=== PATIENT | male | born 1990 | race Caucasian/White ===

== ENCOUNTER 2024-06-06 07:27 | Outpatient (CLI) | payer BC, SELFPAY ==
[2024-06-06 07:57] LABS: Hemoglobin A1C 4.7 % (<5.7)
[2024-06-06 07:58] LABS: Anion Gap 5.9 mmol/L (3-11); BUN 18 mg/dL (7-18); CO2 31.1 mmol/L (21.0-32.0); CREATININE 1.1 mg/dL (0.70-1.30); Calcium 9.1 mg/dL (8.5-10.1); Calculated LDL 116 mg/dL (<100); Chloride 107 mmol/L (98-107); Cholesterol 173 mg/dL (<200); Estimated GFR 91.47 (mL/min/1.73m2); Glucose 96 mg/dL (74-106); HDL Cholesterol 45 mg/dL (40-60); Potassium 3.9 mmol/L (3.5-5.1); Sodium 144 mmol/L (136-145); Triglyceride 62 mg/dL (<150)
== END 2024-06-06 07:28 | disposition home or self-care (01) ==
LOC: LBO 07:28
PROVIDERS: Visit Provider Nurse Practitioner Family
DX: Z13.220 Encounter for screening for lipoid disorders (principal); Z13.228 Encounter for screening for other metabolic disorders; Z01.30 Encounter for examination of blood pressure without abnormal findings
CPT/HCPCS: 36415; 80048; 80061; 83036